=== PATIENT | male | born 1960 ===

== ENCOUNTER 2023-09-07 07:37 | Outpatient (CLI) | payer OTHER ==
[~2023-09-07 07:37] MED LIST: DICLOFENAC POTA50 MG PO; NORFLEX100MG PO; ORPHENADRINE30 MG/M1 IM; TORADOL60 MG IM
== END 2023-09-07 07:50 | disposition home or self-care (01) ==
LOC: RAD 07:37
PROVIDERS: ATTEND Physical Medicine & Rehabilitation Sports Medicine
DX: M47.812 Spondylosis without myelopathy or radiculopathy, cervical region (principal)